=== PATIENT | female | born 2000 | race Caucasian/White ===

== ENCOUNTER 2022-09-08 06:14 | Emergency (ER) | payer MEDICAID ==
[2022-09-08 09:27] VITALS: BP 118/81
[2022-09-08] MEDS ORDERED: TOPUD MT (09:54)
[2022-09-08] MEDS ORDERED: IBUP-2029 MT (09:54)
== END 2022-09-08 10:22 | disposition home or self-care (01) ==
LOC: ER 06:14
DX: M25.532 Pain in left wrist (principal); Z88.2 Allergy status to sulfonamides; V49.9XXA Car occupant (driver) (passenger) injured in unspecified traffic accident, initial encounter; Y93.89 Activity, other specified; Y92.89 Other specified places as the place of occurrence of the external cause; Y99.8 Other external cause status
CPT/HCPCS: 73090; 73110; 73130; 81025; 99284

== ENCOUNTER 2022-12-07 13:04 | Emergency (ER) | payer BC, MEDICAID ==
[~2022-12-07] VITALS: Ht 162.6 cm; Wt 90.0 kg
[~2022-12-07 13:04] MED LIST: IBUP-2029 MT; TOPUD MT
[2022-12-07 13:49] VITALS: O2SAT 99
[2022-12-07 13:49] LABS: HEMATOCRIT. 44.4 % (36.0-48.0); HEMOGLOBIN. 15.3 g/dL (12.0-16.0); MEAN CORPUSCULAR HEMOGLOBIN 30.8 pg (28.0-32.0); MEAN CORPUSCULAR HGB CONC 34.4 g/dL (31.0-37.0); MEAN CORPUSCULAR VOLUME 89.6 fL (81.0-99.0); MEAN PLATELET VOLUME 8.8 fl (7.4-10.4); PLATELET 298 x1000/uL (130-400); RED BLOOD CELL COUNT 4.95 mill/uL (4.2-5.4); RED CELL DISTRIBUTION WIDTH 13.3 % (11.6-14.6); WHITE BLOOD COUNT 5.9 x1000/uL (4.5-11.0)
[2022-12-07 13:54] LABS: DIFFERENTIAL COMMENT 1
[2022-12-07 13:56] LABS: CHLORIDE 106 mEq/L (98-107); INDEX HEMOLYSI 1 (1-3); INDEX ICTERIC 1 (1-4); INDEX LIPEMIC 1 (1-3); POTASSIUM 3.6 mEq/L (3.5-5.1); SODIUM 136 mEq/L (136-145)
[2022-12-07 14:04] LABS: ALANINE AMINOTRANSFERASE 19 IU/L (13-61); ASPARTATE AMINOTRANSFERASE 12 IU/L (15-37); BILIRUBIN TOTAL 0.4 mg/dL (0.1-1.0); CALCIUM 9.3 mg/dL (8.5-10.1); CARBON DIOXIDE 25 mEq/L (21-32); CREATININE 0.7 mg/dL (0.6-1.3); GLUCOSE 99 mg/dL (70-105); PROTEIN TOTAL 7.9 g/dL (6.0-8.3); UREA NITROGEN BLOOD 6 mg/dL (7-21)
[2022-12-07 14:12] LABS: PLATELET ESTIMATE NORMAL
[2022-12-07] MEDS ORDERED: ONDANSETRON 4MG ODT PO ONE (15:15)
[2022-12-07] MEDS ORDERED: ACETAMINOPHEN 325MG TABLET PO ONE (15:15)
[2022-12-07 16:32] LABS: CLARITY URINE TURBID (CLEAR); COLOR URINE YELLOW (YELLOW); GLUCOSE URINE NEGATIVE (NEGATIVE); KETONES URINE 3+ (NEGATIVE); LEUKOCYTE ESTERASE URINE NEGATIVE (NEGATIVE); NITRITE URINE NEGATIVE (NEGATIVE); OCCULT BLOOD URINE 1+ (NEGATIVE); PROTEIN URINE TRACE (NEGATIVE); SPECIFIC GRAVITY URINE 1.028 (1.005-1.030); UROBILINOGEN URINE 0.2 E.U./dL (0.2-1.0)
[2022-12-07] MEDS ORDERED: ONDA4TAB11 PO (16:40)
[2022-12-07] MEDS ORDERED: IBUP-2028 MT (16:42)
[2022-12-07] MEDS ORDERED: TOPUD MT (16:42)
[2022-12-07 16:48] VITALS: BP 125/75; PULSE 67; RESP 18; TEMP 98.5
[2022-12-07 16:49] LABS: SQUAMOUS EPITHELIAL CELL URINE 1+ /lpf (RARE/1+); WBC URINE 0-2 /hpf (0-2)
[2022-12-07 16:50] LABS: AMORPHOUS SEDIMENT URINE 1+ /lpf; BACTERIA URINE 3+; YEAST URINE NONE SEEN
== END 2022-12-07 16:53 | disposition home or self-care (01) ==
LOC: ER 13:04
DX: U07.1 COVID-19 (principal); Z88.2 Allergy status to sulfonamides
CPT/HCPCS: 99283; 87426; 80053; 81003; 81025; 83690; 85025; 87804 ×2; 36415; Q0162; C9803